=== PATIENT | male | born 1935 | race Caucasian/White ===

== ENCOUNTER 2016-06-22 23:21 | Emergency (ER) | payer MEDICARE, BC ==
[~2016-06-22] VITALS: Ht 175.3 cm; Wt 81.6 kg
[~2016-06-22 23:21] MED LIST: ASPIRIN CHILDRE81 M1 PO; AVODART0.5 MG PO; BACTRIM DS 8001 TA1 PO; CARDURA2 MG PO; DESYREL50 MG PO; EC NAPROSYN500 MG PO; INSULIN SC; LEVAQUIN750 MG PO; LEVEMIR100 U/M2 SC; MECLIZINE25 MG PO; METFORMIN500 MG PO; NEVANAC 3 ML3 ML OP; NIASPAN750 MG PO; OXAZEPAM 15MG C15 M1 PO; PRADAXA150 MG PO; REQUIP1 MG PO; SOTALOL80 MG PO; STAHIST1 TER PO; TEMAZEPAM30 MG PO; TOBRADEX 0.1% OP; ZOCOR40 MG PO
--- NOTE | 2016-06-22 23:57 | Emergency Room Report ---
History of Present Illness Time Seen by [id number] Presenting Problem in Triage Pt arrived:Walked Presenting Problem:PT ADVISES THAT HE HAS A PIECE OF HIS HEARING AID STUCK IN HIS LEFT EAR Onset of symptoms date/time:/ or onset unknown for:MEDICAL HX UNKNOWN Treatment Prior to Arrival: BIOMEDICAL SPECIALIST Provided by: Sepsis Risk Assessment: Temp: 98.2 B/P: 163/81 MAP: 129 Pulse: 76 Resp: 16 Recent fever? N Clinical Suspician of Infection? N Mental Status: 1 - Regular (Normal Baseline) Sepsis Risk:Low Sepsis Risk Have you (or family members/close friends) recently traveled outside the [place]? N If Yes, where/when: Have you had exposure to infectious disease within the past month? N TB? Other? Specify: Source patient, RN notes reviewed, family, RN/MD Exam Limitations no limitations Comment Patient is here with rubber foreign body (both of his hearing aid) stuck in his left ear. This probably occurred 45 minutes prior to arrival to the emergency room. Patient complains with mild discomfort, denies any pain or hearing loss. Patient denies any bleeding from his left ear. ALLERGIES Coded Allergies: morphine (NA-NAUSEA 08/08/15) Home Medications Active Scripts SULFAMETHOXAZOLE/TRIMETHOPRIM (Bactrim Ds Tablet) 1 TAB PO BID #14 TAB Prov: 02/01/15 Reported Medications Insulin Detemir (Levemir) 20 UNITS SC EVERY MORNIN Metformin HCL (Metformin) 500 MG PO BID Metformin HCL (Metformin) 500 MG PO 1830 Doxazosin Mesylate (Cardura) 2 MG PO QHS Simvastatin (Zocor) 40 MG PO QHS Sotalol Hcl (Sotalol) 80 MG PO BID DABIGATRAN ETEXILATE MESYLATE (Pradaxa) 150 MG PO BID Temazepam (Temazepam 30MG) 30 MG PO QHS Oxazepam 15 MG PO QHSP Dutasteride (Avodart) 0.5 MG PO QHS Aspirin 325 MG PO DAILY History Medical History General CAD? No Angina: No [place]: No Hypertension? No Hyperlipidemia? Yes CHF? No DVT? No PE? No COPD? No Asthma? No Anemia? No GERD? No Gastric ulcers? No GI Bleed? No Hernia? Yes Thyroid Problems? No Hypothyroidism? No CVA? Yes Seizures? No Diabetes? Yes Insulin Dependent: No Insulin Pump: No Home FSBS? Yes Renal Insuffiency? No End Stage Renal Disease? No UTI? No Stones? No BPH? No GB Disease: No Nephritic Syndrome? No Asplenia? No Hepatitis? No Sickle Cell Disease? No Arthritis? No Migraines? No Cataracts? Yes Glaucoma? No MRSA? No HIV? No TB? No Anxiety? No Depression? No Cancer? No More? No Immunization Hx DT/Tetanus Unknown Flu 2013-14FSN Pneumonia Received In Past Surgical Hx Previous Surgery?Y Hernia NASAL SX Hemorrhoid CABG X3 PACEMAKER NILE CATARACTS REMOVED TURP Family History Family Hx Diabetes Yes CAD No Hypertension No Hyperlipidemia No Cancer Yes TB No Social History Smoking Hx Smoker: Former Smoker Tobacco: Yes Type Cigarettes Packs/day N/A Alcohol Alcohol: No Review of Systems All Other Systems Reviewed and Negative ENT see HPI (left ear FB). Physical Exam Vital Signs Vital Signs Date Time Temp Pulse Resp B/P Pulse O2 O2 Flow FiO2 Ox Delivery Rate 06/22 2358 76 16 163/81 98 06/22 2330 98.2 77 16 159/114 98 General Appearance normal appearance, WD/WN, no apparent distress Ear, Nose, Throat hearing grossly normal, normal ENT inspection, left ear cannal rubber FB Neck normal inspection, non-tender, supple, full range of motion Respiratory Status Yes: trachea midline, chest symmetrical, non tender chest. No: respiratory distress. Lung Sounds bilateral: normal breath sounds, lungs clear. 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 No Comment Procedure successful, left ear canal robber piece from patient's hearing is removed, post inspection left ear canal appears intact, few lesions, free of bleeding. Patient discharged home, instructed to follow-up with his PCP if any further concerns. Procedures FB Removal (excluding Eyes) FB Removal Risks/benefits discussed with pt/guardian? Yes Location/Suspected object left ear cannal Anesthesia None Foreign Body (Not Eyes) Remove Simple (w/ aligator forceps). Risk of retained FB explained to pt/guardian? Yes Departure Departure Time of Disposition 2358 Disposition DC Home or Self Care(routine) Clinical Impression Primary Impression: Foreign body in left ear Qualifiers: Encounter type: initial encounter Qualified Code: T16.2XXA - Foreign body in left ear, initial encounter Condition STABLE Referrals Donnie PINEDA,A.C. (Family) as needed Patient Instructions DI for Removal of Foreign Body From Ear Additional Instructions Please follow-up with Dr. Fields as needed. Discharge Counseling Counseled pt/family regarding diagnosis, medications/RX, home care, follow up needs Comment Please follow-up with Dr. Fields as needed. ED Critical Care Critical Care No at 1100
[2016-06-22 23:58] VITALS: BP 163/81
== END 2016-06-22 23:59 | disposition home or self-care (01) ==
LOC: ER 23:21
PROC: 09CA0ZZ Extirpation of Matter from Left Auditory Ossicle, Open Approach (ICD-10-PCS; principal; 2016-06-22)
DX: T16.2XXA Foreign body in left ear, initial encounter (principal); E11.9 Type 2 diabetes mellitus without complications